=== PATIENT | male | born 1995 | race Caucasian/White ===

== ENCOUNTER 2018-10-26 17:31 | Inpatient (IN) ==
[2018-10-26] MEDS ORDERED: cloNIDine 0.1 MG TABLET PO PRN (18:52)
[2018-10-26] MEDS ORDERED: METHOCARBAMOL 750 MG TABLET PO PRN (18:52)
[2018-10-26] MEDS ORDERED: LORazepam 2 MG/1 ML VIAL IV PRN (18:55)
[2018-10-26 19:31] LABS: Basophils % 0.3 % (0.0-0.8); Eosinophils % 0.4 % (0.00-10.9); Hematocrit 37.2 VOL% (42.0-52.0); Immature Granulocytes % 0.3 %; Immature Granulocytes Absolute 0.02 #; Lymphocytes # 2.2 10*3/uL (1.4-4.0); Lymphocytes % 32.2 % (21.2-54.2); Mean Corpuscular HGB Conc 34.9 GM/DL (32-36); Mean Platelet Volume 11.4 FL (9.6-12.0); Neutrophils % 58.8 % (38.7-73.9); Platelet Count 241 T/CUMM (130-400); Red Blood Count 4.18 MC/CUMM (3.8-5.5); Red Cell Distribution Width 12.9 % (9.3-17.3); White Blood Count 6.9 T/CUMM (4-12)
[2018-10-26 19:59] LABS: Albumin 3.8 G/DL (3.4-5.0); Bilirubin,Total 0.4 MG/DL (0.2-1.0); Calcium 8.6 MG/DL (8.5-10.1); Osmolality,Calculated 280.1 MOS/KG (273-304); Total Protein 6.8 G/DL (6.4-8.3)
[2018-10-26] MEDS: BUPRENORPHINE SL TAB 2 MG TABLET SL SCH (20:18)
[2018-10-26] MEDS: HydrOXYzine PAMOATE 25 MG CAPSULE PO PRN (20:19)
[2018-10-26 20:46] LABS: Apearance,Urine CLEAR (Clear); Bilirubin,Urine Negative (Negative); Blood, Urine Negative (Negative); Glucose,Urine (UA) Negative (Negative); Ketones,Urine Negative (Negative); Mucus,Urine Occasional /LPF (Occasional); Nitrite,Urine Negative (Negative); Protein,Urine Negative; RBC,Urine 1 /HPF (0-4); Urine Color Yellow (Yellow); Urine Specific Gravity 1.006 (1.001-1.035); Urine Urobilinogen < 2.0 EU/DL (0.2-1.0); WBC,Urine <1 /HPF (0-6)
[2018-10-26] MEDS ORDERED: SODIUM CHLORIDE 0.9% 1,000 ML IV SCH (21:00)
[2018-10-26 22:09] LABS: Barbiturates Screen,Urine Negative (Negative); Benzodiazepines Screen,Urine Negative (Negative); Cannabinoid Screen,Urine Positive (Negative); Opiate Screen,Urine Negative (Negative); Phencyclidine Screen,Urine Negative (Negative)
[2018-10-27] MEDS: BUPRENORPHINE SL TAB 2 MG TABLET SL SCH ×3 (04:12→20:36)
[2018-10-27] MEDS ORDERED: ONDANSETRON 4 MG/2 ML VIAL IV PRN (07:26)
[2018-10-27] MEDS ORDERED: PROMETHAZINE 25 MG/1 ML VIAL IM PRN (07:26)
[2018-10-27] MEDS ORDERED: ACETAMINOPHEN 325 MG TABLET PO PRN (07:26)
[2018-10-27] MEDS ORDERED: LACTULOSE 20 GM/30 ML UDCUP PO PRN (07:26)
[2018-10-27] MEDS: FOLIC ACID 1 MG TABLET PO SCH (08:35)
[2018-10-27] MEDS: THIAMINE 100 MG TABLET PO SCH (08:35)
[2018-10-27] MEDS: MULTIVITAMIN (OCUVITE) TABLET PO SCH (08:35)
[2018-10-27] MEDS: PANTOPRAZOLE 40 MG TABLET PO SCH (08:35)
[2018-10-27] MEDS: HydrOXYzine PAMOATE 25 MG CAPSULE PO PRN ×2 (08:38→21:58)
[2018-10-27] MEDS ORDERED: KETOROLAC 30 MG/1 ML VIAL IV PRN (10:31)
[2018-10-28] MEDS: BUPRENORPHINE SL TAB 2 MG TABLET SL SCH ×3 (04:28→20:59)
[2018-10-28] MEDS: NICOTINE 21 MG/24 HR PATCH TRANSDERM PRN (08:18)
[2018-10-28] MEDS: MULTIVITAMIN (OCUVITE) TABLET PO SCH (08:19)
[2018-10-28] MEDS: PANTOPRAZOLE 40 MG TABLET PO SCH (08:19)
[2018-10-28] MEDS: THIAMINE 100 MG TABLET PO SCH (08:19)
[2018-10-28] MEDS: FOLIC ACID 1 MG TABLET PO SCH (08:19)
[2018-10-29 08:08] VITALS: BP 107/56
[2018-10-29] MEDS: FOLIC ACID 1 MG TABLET PO SCH (08:48)
[2018-10-29] MEDS: PANTOPRAZOLE 40 MG TABLET PO SCH (08:48)
[2018-10-29] MEDS: BUPRENORPHINE SL TAB 2 MG TABLET SL SCH (08:48)
[2018-10-29] MEDS: THIAMINE 100 MG TABLET PO SCH (08:48)
[2018-10-29] MEDS: MULTIVITAMIN (OCUVITE) TABLET PO SCH (08:48)
[2018-10-29] MEDS: NICOTINE 21 MG/24 HR PATCH TRANSDERM PRN (08:49)
== END 2018-10-29 11:06 | disposition home or self-care (01) | DRG 897 ==
LOC: N.4E 17:40
PROVIDERS: ADMIT Family Medicine; ATTEND Family Medicine